=== PATIENT | male | born 1995 | race Caucasian/White ===

== ENCOUNTER → 2017-05-01 | Outpatient (CLI) | payer BC ==
[2017-05-06 18:51] LABS: COXSACKIE A10 <1:8; COXSACKIE A16 <1:8; COXSACKIE A2 <1:8; COXSACKIE A4 <1:8; COXSACKIE A7 <1:8; COXSACKIE A9 <1:8; COXSACKIE B1 <1:8 (<1:8); COXSACKIE B2 <1:8 (<1:8); COXSACKIE B3 <1:8 (<1:8); COXSACKIE B4 <1:8 (<1:8); ECHOVIRUS 11 <1:8; ECHOVIRUS 30 <1:8; ECHOVIRUS 4 <1:8; ECHOVIRUS 7 <1:8; ECHOVIRUS 9 <1:8; LEGIONELLA PNEUMOPHILA IGG AB <1:64 TITER
== END | disposition home or self-care (01) ==
LOC: C.LAB 18:18
PROVIDERS: ATTEND Family Medicine
DX: Z20.9 Contact with and (suspected) exposure to unspecified communicable disease (principal)